=== PATIENT | female | born 1955 | race Caucasian/White ===

== ENCOUNTER 2019-05-24 11:10 | Day surgery (SDC) | payer BC, SELFPAY ==
[2019-05-24 11:40] VITALS: BP 111/58; PULSE 55; RESP 15; TEMP 36.5; O2SAT 99
[2019-05-24] MEDS: Lactated Ringers 1,000 ML 80 ML IV (12:07)
[2019-05-24] MEDS: ceFAZolin 1 GM/50 ML BAG IVPB (13:34)
[2019-05-24] MEDS: Bupivacaine 0.5% Pres-Free 30 ML VIAL (13:37)
[2019-05-24] MEDS: Lidocaine 1% Multi-Dose 50 ML VIAL (13:37)
--- NOTE | 2019-05-24 14:00 | BUN_PTH ---
PATIENT: SALEEM WILSON LOC: [facility] U#:[id number] AGE/SX: 63/F ROOM: RE05/24/[address]: Wil Callejas : 1955 BED: DIS: 05/24/2019 SPEC #: [id number] RECD: 05/24/19 16:24 STATUS: ADY REQ #: [id number] JAVAN: 05/24/19 14:[address]: Wil Callejas DEPT: Surgical Specimen RECD BY: Sadie Faye ENTERED: 05/24/19 16:25 SP TYPE: Bunion OTHR DR: Yaakov Staples Tissues: 1 - BUNION Procedures: GROSS AND MICRO LEVEL 4 Comments: [id number]
[2019-05-24] MEDS: Dexamethasone 4 MG/ML VIAL (14:10)
--- NOTE | 2019-05-24 14:19 | W.PM.DSUDISC ---
Discharge Plan Discharge Details Attending Provider: Wil Callejas Primary Care Provider: Yaakov Staples Home Meds and New Rx's Prescriptions: No Action multivitamin Tablet 1 tab PO DAILY RF: 0 vitamin B complex Tablet 1 tab PO DAILY RF: 0 escitalopram oxalate 10 mg Tablet 10 mg PO DAILY RF: 0 cholecalciferol (vitamin D3) [Vitamin D3] 2,000 unit Tablet 2,000 unit PO DAILY RF: 0 DS: Diagnosis Discharge Diagnosis (1) Bunionette of left foot: Start date: 05/24/19 Start time: 14:20 Status: Acute Asessment and Plan: s/p partial resection left 6th metatarsal head and excision soft tissue mass, ganglion/bursal sac.
[2019-05-24 14:50] VITALS: BP 129/63; PULSE 55; RESP 16; TEMP 36.2; O2SAT 99
--- NOTE | 2019-05-25 06:43 | ROE_ITS ---
REPORT OF OPERATIVE PROCEDURE DATE OF SURGERY May 24, 2019 PREOPERATIVE DIAGNOSIS Symptomatic left Tailor's bunion deformity. POSTOPERATIVE DIAGNOSIS Symptomatic left Tailor's bunion deformity. PROCEDURES 1. Partial fifth metatarsal head resection. 2. Excision soft tissue mass. ANESTHESIA IV general anesthesia. ANESTHESIA PROVIDER Osvaldo Duarte C.R.N.A. SURGEON: Wil Callejas D.P.M. OPERATIVE INDICATIONS A 63-year-old female with moderate pain over the lateral and plantar aspects of the fifth MPJ of the left foot, which has not responded to nonoperative measures. Pain was exacerbated with shoe gear, amb ulation, unrelieved by change of shoe gear, etcetera. She has opted for surgical intervention. She un derstands the potential risks and complications pertaining to pain, scarring, infection, stiffness of the joints recurrence of soft tissue enlargement, recurrence of bunionette deformity potentially req uiring revisional procedures. Informed consent has been obtained. No promises made to final outcome of surgery. REPORT OF OPERATION Vaishali was brought to the Operative Suite, placed in the supine position where the left foot was prepp ed and draped in the usual sterile podiatric fashion. Anesthesia being obtained, the left foot was ex sanguinated, a well-padded ankle tourniquet inflated to 250 mmHg. Attention was directed to the dors al lateral aspect of the left fifth MPJ. An incision was made parallel to the extensor tendon measur ing approximately 3.5 cm. The incision was deepened via controlled-depth fashion. Hemostasis acquired with electrocautery as needed. Dissection was carried down to the joint capsule. The joint capsule w as incised along the dorsal mid central portion of the capsule and reflected medially and laterally. The fifth metatarsal head was mildly hypertrophic in the dorsal and lateral aspect. This was resecte d with osteotome and mallet with all roughened bony edges rasped smooth. It was then noted that a sof t tissue swelling existed between the joint capsule and the skin. This was dissected laterally and it appeared to be a bursal sac, although I could not rule out a ganglion. Nevertheless, this tissue wa s dissected free of the surrounding tissue. It appeared to come plantar towards the bottom of the luciano nt possibly at the joint line or the flexor tendon. Once again, it was hard to get to the base due to incision placement, but nevertheless, the soft tissue mass was removed in total and sent to patholog y. Inspection of the wound failed to reveal any other pathologic findings. Copious irrigation was per formed. The joint capsule was repaired with simple interrupted suture #3-0 Vicryl. The subcuticular l dae was brought together with simple interrupted suture of #4-0 Vicryl. The skin was coapted with co ntinuous running interlocking suture #4-0 Nylon, 4 mg of dexamethasone phosphate was infused deeply i nto the wound, followed by Xeroform, fluff, Kerlix compression dressing. The tourniquet was released 25 minutes with vascularity returning immediately to all toes. Vaishali lef t the OR with vital signs stable, vascular status intact. Sharp and sponge counts were correct. She will be followed by myself in the office next week. CC: Yaakov Staples M.D.
== END 2019-05-24 15:13 | disposition home or self-care (01) ==
PROVIDERS: PCP Family Medicine; Visit Provider Podiatrist
PROC: (CPT 28288; principal; 2019-05-24 13:00)
DX: M21.622 Bunionette of left foot (principal)
CPT/HCPCS: 28110; 28090; 88300; 88305; J0690; J1100; J1885; J2250; J2405; J3010